=== PATIENT | female | born 1965 ===

== ENCOUNTER → 2024-07-24 | Outpatient (CLI) | payer BC ==
[2024-07-24] VITALS (21 sets, daily range): BP systolic 105–146; BP diastolic 61–79; PULSE 51–60
== END | disposition home or self-care (01) ==
LOC: CARD DIAG 11:00
PROVIDERS: ATTEND Internal Medicine Interventional Cardiology
DX: R42 Dizziness and giddiness (principal)
CPT/HCPCS: 93660